=== PATIENT | male | born 1940 | race Caucasian/White ===

== ENCOUNTER 2017-01-13 08:59 | Day surgery (SDC) | payer MEDICARE ==
[2017-01-13] MEDS ORDERED: LIDOCAINE 2% MDV (20MG/ML) 20ML VIAL IV ONE (14:00)
[2017-01-13] MEDS ORDERED: MIDAZOLAM HCL 2MG/2ML VIAL IV ONE (14:00)
[2017-01-13] MEDS ORDERED: PROPOFOL 10 MG/ML VIAL IV ONE (14:00)
--- NOTE | 2017-01-18 17:31 | Operative Note ---
DATE OF SURGERY: 01/13/2017 OPERATION: COLONOSCOPY with biopsy and cold snare, also incomplete colonoscopy to level of ileocecal valve. PREPARATION QUALITY: Good. ESTIMATED BLOOD LOSS: Minimal. SPECIMENS: Ileocecal valve and sigmoid polyp. PROCEDURE: After informed consent was obtained from the patient, he was placed in the left lateral decubitus position in the endoscopy suite, sedated and monitored by the department of anesthesia. Digital rectal exam was unremarkable. A well-lubricated [id number] colonoscope was inserted into the rectum and advanced to the ileocecal valve. The colon was quite redundant and marked looping was noted. Despite the use of abdominal pressure and despite placing the patient in a supine position, I was unable to intubate the cecal cap. Despite reducing sigmoid looping and reducing air and despite abdominal pressure and position changes, I was unable to advance the endoscope into the cecal cap. The ileocecal valve itself appeared somewhat irregular and was biopsied multiple times. The remainder of the ascending colon, transverse colon, and descending colon were unremarkable. In the sigmoid colon, there was a 4-5 mm sessile polyp which was removed with a cold snare and retrieved. The remainder of the sigmoid colon and rectum were unremarkable. J-turn views of the anorectum were unremarkable. The endoscope was straightened, the rectal ampulla deflated, and the endoscope was removed. RECOMMENDATIONS: I will have the patient undergo a barium enema to further evaluation the cecum. He will require repeat colonoscopy in 5 years. As always, thank you for allowing me to participate in the healthcare of your patients. CC: ELIZABETH GREGORY MD, FACP [id number]
== END 2017-01-13 11:06 | disposition home or self-care (01) ==
LOC: HOP 08:59
PROVIDERS: ATTEND Internal Medicine Gastroenterology
DX: Z12.11 Encounter for screening for malignant neoplasm of colon (principal); K63.89 Other specified diseases of intestine; Z86.010 Personal history of colon polyps; D12.5 Benign neoplasm of sigmoid colon; I10 Essential (primary) hypertension; E11.9 Type 2 diabetes mellitus without complications; Z53.9 Procedure and treatment not carried out, unspecified reason